=== PATIENT | male | born 1960 ===

== ENCOUNTER 2020-09-20 04:56 | Emergency (ER) | payer MEDICAID ==
--- NOTE | 2020-09-20 10:24 | Emergency Department Report ---
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 Patient states since his amputation he has been having intermittent pain and muscle spasms. Patient states this is usually relieved with his gabapentin, however he reports that he has been out of his medication for 1 week. Patient states the medication has been at the pharmacy for 2 days, but has not been delivered yet. Patient has a wound to the left stump. He reports that his wound care nurse came out and changed her dressings on yesterday. -: week(s) (1) Location: left, lower extremity Severity scale (0 -10): 8 Quality: other (muscle spasms) Consistency: constant Improves with: medication (Gabapentin) Worsens with: none Associated Symptoms: denies other symptoms. denies: fever/chills - Related Data Previous Rx's Medication Instructions Recorded Last Taken Type traMADoL [Ultram] 50 mg PO Q6HR PRN #7 tablet 09/20/20 Unknown Rx Allergies Allergy/AdvReac Type Severity Reaction Status Date / Time Penicillins Allergy Hives Verified 09/20/20 08:59 ED Review of Systems ROS: Stated complaint: Other details as noted in HPI Comment: All other systems reviewed and negative Constitutional: denies: fever Musculoskeletal: as per HPI ED Past Medical Hx - Past Medical History Previous Medical History?: Yes Hx Hypertension: Yes Hx Diabetes: Yes Hx Deep Vein Thrombosis: Yes Additional medical history: Bilateral AKA, sciatica - Medications Home Medications: Home Medications Medication Instructions Recorded Confirmed Last Taken Type traMADoL [Ultram] 50 mg PO Q6HR PRN #7 tablet 09/20/20 Unknown Rx ED Physical Exam - General Limitations: No Limitations General appearance: alert, in no apparent distress - Head Head exam: Present: atraumatic, normocephalic - Eye Eye exam: Present: normal appearance, EOMI - ENT ENT exam: Present: mucous membranes moist - Neck Neck exam: Present: normal inspection - Respiratory Respiratory exam: Present: normal lung sounds bilaterally. Absent: respiratory distress - Cardiovascular Cardiovascular Exam: Present: regular rate, normal rhythm - GI/Abdominal GI/Abdominal exam: Present: soft. Absent: distended - Extremities Exam Extremities exam: Present: other (Left lower extremity with AKA; small wound approximately 4 cm present on stump with pink tissue, no purulence discharge or foul smell present) - Neurological Exam Neurological exam: Present: alert, oriented X3 - Psychiatric Psychiatric exam: Present: normal affect, normal mood - Skin Skin exam: Present: warm, dry, intact, normal color ED Course Vital Signs 09/20/20 09/20/20 09/20/20 05:00 09:47 09:51 Temperature 98.6 F Pulse Rate 110 H Respiratory 18 20 Rate Blood Pressure Blood Pressure 150/86 [Right] O2 Sat by Pulse 97 97 98 Oximetry 09/20/20 09/20/20 09/20/20 09:53 10:00 10:16 Temperature Pulse Rate 101 H 96 H 105 H Respiratory 18 18 20 Rate Blood Pressure 110/76 110/76 Blood Pressure 120/80 [Right] O2 Sat by Pulse 99 96 97 Oximetry 09/20/20 09/20/20 10:30 10:46 Temperature Pulse Rate 98 H 103 H Respiratory 20 18 Rate Blood Pressure 130/84 130/84 Blood Pressure [Right] O2 Sat by Pulse 98 Oximetry ED Medical Decision Making - Medical Decision Making 59-year-old male presents to ED with complaint of muscle spasms to his left lower extremity. Patient reports AKA amputation last year. He currently has a wound on his left hip and left stump. Patient is seeing wound care for this. Wounds appear to be healing well, not infected. Vital signs are stable, patient is afebrile. Patient basically reports that he has chronic pain to this left leg and is currently out of his gabapentin. He has been having this pain since he ran out. Patient states he would like something stronger than his gabapentin right now. States his medication is at the pharmacy and they will be sending it to him. Patient given Percocet here in the ED, he reports improvement in pain. Patient will be discharged at this time, outpatient follow-up advised. - Differential Diagnosis Chronic pain Critical care attestation.: If time is entered above; I have spent that time in minutes in the direct care of this critically ill patient, excluding procedure time. ED Disposition Clinical Impression: Left leg pain Disposition: DC-01 TO HOME OR SELFCARE Is pt being admited?: No Condition: Stable Instructions: Phantom Limb Pain, Neuropathic Pain Prescriptions: traMADoL [Ultram] 50 mg PO Q6HR PRN #7 tablet PRN Reason: Pain Referrals: PRIMARY CARE,MD [Primary Care Provider] - 3-5 Days Time of Disposition: 10:51
[2020-09-20] MEDS ORDERED: oxyCODONE /ACETAMINOPHEN 5-325MG TAB PO ONE (10:27)
[2020-09-20 11:06] VITALS: BP 130/84
[2020-09-20] MEDS ORDERED: GABAPENTIN 300 MG CAP PO ONE (16:15)
== END 2020-09-20 14:54 | disposition home or self-care (01) ==
LOC: EDBD → ED 04:56
DX: M79.662 Pain in left lower leg (principal); M62.831 Muscle spasm of calf; I10 Essential (primary) hypertension; E11.9 Type 2 diabetes mellitus without complications; Z86.718 Personal history of other venous thrombosis and embolism; Z79.899 Other long term (current) drug therapy; Z88.0 Allergy status to penicillin